=== PATIENT | male | born 1980 | race Caucasian/White ===

== ENCOUNTER 2018-02-05 16:46 | Emergency (ER) | payer SELFPAY ==
[2018-02-05] MEDS ORDERED: Ketorolac 30 MG/ML SDV IVPUSH ONE (17:48)
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
== END 2018-02-05 18:32 | disposition home or self-care (01) ==
LOC: JP.ED 16:46
DX: S00.03XA Contusion of scalp, initial encounter (principal); S00.81XA Abrasion of other part of head, initial encounter; V49.88XA Car occupant (driver) (passenger) injured in other specified transport accidents, initial encounter
CPT/HCPCS: 96374; 99283; J1885; 99282

== ENCOUNTER 2018-04-26 19:49 | Emergency (ER) | payer MEDICARE ==
[2018-04-26] MEDS ORDERED: Triamcinolone Acetonide 40 MG/ML 1 ML MDV IM ONE (21:04)
[2018-04-26] MEDS ORDERED: hydrOXYzine HCl 100 MG/2 ML SDV IM ONE (21:05)
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
== END 2018-04-26 21:29 | disposition home or self-care (01) ==
LOC: JP.ED 19:49
DX: L01.00 Impetigo, unspecified (principal)
CPT/HCPCS: 96372; 99283; J3301; J3410

== ENCOUNTER 2018-11-24 19:12 | Emergency (ER) | payer MEDICARE ==
--- NOTE | 2018-11-24 20:12 | EDM.PDOC ---
ED HPI GENERAL MEDICAL PROBLEM - General Chief Complaint: Lower Extremity Injury/Pain Stated Complaint: WALKING AND TWISTED KNEE Time Seen by Provider: 11/24/18 19:59 Source of Information: Reports: Patient History Limitations: Reports: No Limitations - History of Present Illness INITIAL COMMENTS - FREE TEXT/NARRATIVE: This man had previous surgery on his left knee and ACL repair. Tonight he was walking around and he slipped and twisted his left knee. That happened a few hours ago. He complains of pain to the medial aspect of the left knee. He is able to bear weight. He said elevating it and applying ice has not helped. Treatments MANAGER DIVISION: Reports: Other (see below) Other Treatments MANAGER DIVISION: uses a cane Left Knee Pain Score (Numeric/FACES): 8 - Related Data Allergies Allergy/AdvReac Type Severity Reaction Status Date / Time No Known Allergies Allergy Verified 02/05/18 16:52 Home Meds: Home Meds NK [No Known Home Meds] 02/05/18 [History] Past Medical History - Infectious Disease History Infectious Disease History: Reports: Chicken Pox - Past Surgical History HEENT Surgical History: Reports: Other (See Below) Other HEENT Surgeries/Procedures: LOWER JAW SURGICAL REPAIR Musculoskeletal Surgical History: Reports: Arthroscopic Knee Other Musculoskeletal Surgeries/Procedures:: R HIP REPLACEMENT Social & Family History - Family History Family Medical History: Noncontributory - Tobacco Use Smoking Status *Q: Unknown Ever Smoked - Caffeine Use Caffeine Use: Reports: Soda - Recreational Drug Use Recreational Drug Use: No - Living Situation & Occupation Living situation: Reports: , Single Occupation: Employed Review of Systems - Review of Systems Review Of Systems: ROS reveals no pertinent complaints other than HPI. ED EXAM, GENERAL - Physical Exam Exam: See Below Exam Limited By: No Limitations General Appearance: Alert, WD/WN, No Apparent Distress Extremities: Other (Grossly normal-appearing knee with some reduction in flexion. No evidence of any effusion. No erythema. There is moderate tenderness to the medial collateral ligaments. The knee is stable.) Course - Vital Signs Last Recorded V/S: Last Vital Signs Temp 36.8 C 11/24/18 19:45 Pulse 94 11/24/18 19:45 Resp 14 11/24/18 19:45 BP 124/82 11/24/18 19:45 Pulse Ox 96 11/24/18 19:45 Departure - Departure Time of Disposition: 20:09 Disposition: Home, Self-Care 01 Condition: Fair Clinical Impression: Strain of left knee - Discharge Information Referrals: PCP,None [Primary Care Provider] - Additional Instructions: This appears to be a ligament strain of the medial collateral ligament. Since there is no appreciable swelling or bruising then I don't think it's a actual sprain. Use pain medications as needed. The Nar[place] 5/325 (#12) one or 2 every 4 hours for pain. This can cause sedation and impair driving could lead to addiction if abused. Elevate your knee and apply ice. Weightbearing as tolerated. An ronni wrap may help it.
== END 2018-11-24 20:35 | disposition home or self-care (01) ==
LOC: JP.ED 19:12
DX: S86.912A Strain of unspecified muscle(s) and tendon(s) at lower leg level, left leg, initial encounter (principal); X50.1XXA Overexertion from prolonged static or awkward postures, initial encounter
CPT/HCPCS: 99283

== ENCOUNTER 2018-12-28 22:14 | Emergency (ER) | payer MEDICARE ==
[2018-12-28] MEDS ORDERED: Ketorolac 60 MG/2 ML SDV IM ONE (22:56)
[2018-12-28] MEDS ORDERED: Acetaminophen/oxyCODONE 325-5 MG Tab PO ONE (22:57)
--- NOTE | 2018-12-28 23:03 | EDM.PDOC ---
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 He had surgery to try to straighten the jaw and he now has the screws coming loose. He Has a cavity in one of his back molars which the dentist will not fix. He was referred to the ilion and he can not get an appt until the end of the month. He is now haveing increased pain. Onset: Gradual, Other ( Pt has had days of increased pain. ) Duration: Hour(s): Location: Reports: Face Associated Symptoms: Reports: No Other Symptoms Right Lower Jaw Pain Score (Numeric/FACES): 9 - Related Data Allergies Allergy/AdvReac Type Severity Reaction Status Date / Time No Known Allergies Allergy Verified 12/28/18 22:40 Home Meds: Home Meds NK [No Known Home Meds] 02/05/18 [History] Past Medical History Musculoskeletal History: Reports: Fracture Neurological History: Reports: Concussion Psychiatric History: Reports: ADD Endocrine/Metabolic History: Reports: Obesity/BMI 30+ - Infectious Disease History Infectious Disease History: Reports: Chicken Pox - Past Surgical History HEENT Surgical History: Reports: Other (See Below) Other HEENT Surgeries/Procedures: LOWER JAW SURGICAL REPAIR Musculoskeletal Surgical History: Reports: Arthroscopic Knee, Hip Replacement Social & Family History - Family History Family Medical History: Noncontributory - Tobacco Use Smoking Status *Q: Light Tobacco Smoker Years of Tobacco use: 29 Packs/Tins Daily: 0.3 Used Tobacco, but Quit: No - Caffeine Use Caffeine Use: Reports: Coffee, Energy Drinks, Soda - Recreational Drug Use Recreational Drug Use: No - Living Situation & Occupation Living situation: Reports: , Single Occupation: Employed ED ROS ENT - Review of Systems Review Of Systems: See Below Constitutional: Reports: No Symptoms HEENT: Reports: Dental Pain, Other (pt has severe pain in the lower post molar and he has a palpable screw in the jaw. ) Cardiovascular: Reports: No Symptoms Endocrine: Reports: No Symptoms GI/Abdominal: Reports: No Symptoms : Reports: No Symptoms ED EXAM, ENT - Physical Exam Exam: See Below Text/Narrative:: Pt arrived with pain in the rt jaw area. The molar area is very tender. The gum line is not swollen. He has not had a fever. He uses motrin and he gets relief with 200mg but then it comes back. Exam Limited By: No Limitations General Appearance: Alert, Anxious, Mild Distress Ears: Normal TMs Nose: Normal Inspection Mouth/Throat: Dental Pain, Other (Pt has a carrious lower post molar. He has a palable screw and marked deviation of the jaw. ) Head: Atraumatic Neck: Normal Inspection Respiratory/Chest: No Respiratory Distress Cardiovascular: Regular Rate, Rhythm GI/Abdominal: Soft, Non-Tender Course - Vital Signs Last Recorded V/S: Last Vital Signs Temp 36.1 C 12/28/18 22:39 Pulse 92 12/28/18 22:39 Resp 20 12/28/18 22:39 BP 165/93 H 12/28/18 22:39 Pulse Ox 96 12/28/18 22:39 - Orders/Labs/Meds Orders: Active Orders 24 hr Category Date Time Status Acetaminophen/oxyCODONE [Percocet 325-5 MG] Med 12/28/18 22:57 Once 1 tab PO ONETIME ONE Ketorolac [Toradol] Med 12/28/18 22:56 Once 60 mg IM ONETIME ONE Medication Orders Ketorolac Tromethamine (Toradol) 60 mg IM ONETIME ONE Stop: 12/28/18 22:57 Meds: Medications Generic Name Dose Route Start Last Admin Trade Name Javi PRN Reason Stop Dose Admin Ketorolac Tromethamine 60 mg 12/28/18 22:56 Toradol IM 12/28/18 22:57 ONETIME ONE - Re-Assessments/Exams Free Text/Narrative Re-Assessment/Exam: 12/28/18 23:08 pt was given torodol 60mg im and percocet 5/325. Since he does get relief with the motrin He needs to get on a more rigorous program. Departure - Departure Time of Disposition: 23:09 Disposition: Home, Self-Care 01 Condition: Fair Clinical Impression: Pain due to dental caries, Jaw asymmetry - Discharge Information Referrals: PCP,None [Primary Care Provider] - Care Plan Goals: keep dental appt at [facility], get on a more rigorous program for pain control with the ibuprofen since he does get reliet. Ibuprofin 400mg q8h. Pt can use plain tylenol inbetween for pain. Be sure to take the Ibuprofion with food and push fluids while taking the meds. Return or call if that is not working for the pt. - My Orders Last 24 Hours: My Active Orders 12/28/18 22:56 Ketorolac [Toradol] 60 mg IM ONETIME ONE 12/28/18 22:57 Acetaminophen/oxyCODONE [Percocet 325-5 MG] 1 tab PO ONETIME ONE - Assessment/Plan Last 24 Hours: My Active Orders 12/28/18 22:56 Ketorolac [Toradol] 60 mg IM ONETIME ONE 12/28/18 22:57 Acetaminophen/oxyCODONE [Percocet 325-5 MG] 1 tab PO ONETIME ONE
== END 2018-12-29 00:27 | disposition home or self-care (01) ==
LOC: JP.ED 22:14
DX: K02.9 Dental caries, unspecified (principal); M26.12 Other jaw asymmetry; F17.210 Nicotine dependence, cigarettes, uncomplicated
CPT/HCPCS: 96372; 99283; A9270; J1885

== ENCOUNTER 2019-01-20 21:38 | Emergency (ER) | payer MEDICARE ==
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
== END 2019-01-20 22:38 | disposition home or self-care (01) ==
LOC: JP.ED 21:38
DX: K02.9 Dental caries, unspecified (principal); F17.210 Nicotine dependence, cigarettes, uncomplicated
CPT/HCPCS: 99282

== ENCOUNTER 2019-01-28 20:27 | Emergency (ER) | payer MEDICARE ==
--- NOTE | 2019-01-28 22:47 | EDM.PDOC ---
ED HPI GENERAL MEDICAL PROBLEM - General Chief Complaint: ENT Problem Stated Complaint: tooth issue Time Seen by Provider: 01/28/19 22:15 Source of Information: Reports: Patient History Limitations: Reports: No Limitations - History of Present Illness INITIAL COMMENTS - FREE TEXT/NARRATIVE: 38-year-old presents to concerns of dental pain. He has a history of multiple dental caries. Pain from these for several weeks. Seen here recently, started on penicillin and vicodin Pain continues Unable to get into dental clinic Reports some improvement while on antibiotic No fevers. Otherwise feels well Right Upper Oral/Mouth Pain Score (Numeric/FACES): 10 - Related Data Allergies Allergy/AdvReac Type Severity Reaction Status Date / Time No Known Allergies Allergy Verified 01/28/19 21:05 Home Meds: Home Meds Acetaminophen [Tylenol Extra Strength] 1,000 mg PO ASDIRECTED 01/28/19 [History] Amoxicillin/Clavulanate K [Augmentin 875-125 MG] 1 tab PO BID #14 tablet [Rx] Ibuprofen 800 mg PO ASDIRECTED 01/28/19 [History] Past Medical History Genitourinary History: Reports: Renal Calculus Musculoskeletal History: Reports: Fracture Neurological History: Reports: Concussion Psychiatric History: Reports: ADD Endocrine/Metabolic History: Reports: Obesity/BMI 30+ Dermatologic History: Reports: Psoriasis - Infectious Disease History Infectious Disease History: Reports: Other (See Below) Other Infectious Disease History: unknown - Past Surgical History HEENT Surgical History: Reports: Other (See Below) Other HEENT Surgeries/Procedures: LOWER JAW SURGICAL REPAIR Musculoskeletal Surgical History: Reports: Arthroscopic Knee, Hip Replacement Social & Family History - Family History Family Medical History: Noncontributory - Tobacco Use Smoking Status *Q: Current Every Day Smoker Years of Tobacco use: 24 Packs/Tins Daily: 0.5 - Caffeine Use Caffeine Use: Reports: Coffee - Recreational Drug Use Recreational Drug Use: No - Living Situation & Occupation Living situation: Reports: , Single Occupation: Employed ED ROS ENT - Review of Systems Review Of Systems: See Below Constitutional: Reports: No Symptoms HEENT: Reports: Dental Pain Respiratory: Reports: No Symptoms Cardiovascular: Reports: No Symptoms Endocrine: Reports: No Symptoms GI/Abdominal: Reports: No Symptoms : Reports: No Symptoms Musculoskeletal: Reports: No Symptoms Skin: Reports: No Symptoms Neurological: Reports: No Symptoms Psychiatric: Reports: No Symptoms Hematologic/Lymphatic: Reports: No Symptoms Immunologic: Reports: No Symptoms ED EXAM, ENT - Physical Exam Exam: See Below General Appearance: Alert, No Apparent Distress Ears: Normal External Exam Nose: Normal Inspection Mouth/Throat: Other (severe dental caries right upper front teeth. no surrounding gingival swelling or evidence of abscess) Head: Atraumatic, Normocephalic Neck: Normal Inspection Respiratory/Chest: No Respiratory Distress Cardiovascular: Regular Rate, Rhythm GI/Abdominal: Soft, No Distention Back: Normal Inspection Extremities: Normal Inspection Neurological: Alert, Oriented Psychiatric: Normal Affect, Normal Mood Skin: Warm, Dry Course - Vital Signs Last Recorded V/S: Last Vital Signs Temp 36.8 C 01/28/19 21:11 Pulse 101 H 01/28/19 21:11 Resp 16 01/28/19 21:11 BP 151/97 H 01/28/19 21:11 Pulse Ox 98 01/28/19 21:11 - Re-Assessments/Exams Free Text/Narrative Re-Assessment/Exam: 38 yo presents with concerns of dental pain Have severe caries on exam This has been ongoing issue he is unable to see a dentist due to insurance, scheduled for february at this point No drainable abscess on exam or concern for deep space infection at this time. Will provide #8 norco and repeat course of antibiotics as he reports improvement with this recently 01/28/19 22:51 Departure - Departure Time of Disposition: 22:47 Disposition: Home, Self-Care 01 Clinical Impression: Pain, dental - Discharge Information *PRESCRIPTION DRUG MONITORING PROGRAM REVIEWED*: No *COPY OF PRESCRIPTION DRUG MONITORING REPORT IN PATIENT DEON: No Prescriptions: Amoxicillin/Clavulanate K [Augmentin 875-125 MG] 1 tab PO BID #14 tablet Referrals: PCP,None [Primary Care Provider] - Forms: ED Department Discharge Additional Instructions: You need to follow up with a dentist as discussed Return to the ER if you develop worsening symptoms especially fevers
== END 2019-01-28 22:56 | disposition home or self-care (01) ==
LOC: JP.ED 20:27
DX: K02.9 Dental caries, unspecified (principal); F17.210 Nicotine dependence, cigarettes, uncomplicated
CPT/HCPCS: 99282

== ENCOUNTER 2019-02-06 11:25 | Emergency (ER) | payer MEDICARE, OTHER ==
--- NOTE | 2019-02-06 12:23 | EDM.PDOC ---
ED HPI GENERAL MEDICAL PROBLEM - General Chief Complaint: Upper Extremity Injury/Pain Stated Complaint: FALL, LEFT SIDE, HIT HEAD Time Seen by Provider: 02/06/19 12:10 Source of Information: Reports: Patient History Limitations: Reports: No Limitations - History of Present Illness INITIAL COMMENTS - FREE TEXT/NARRATIVE: 38-year-old male slipped on the ice falling on his left shoulder about 2 hours ago. He has pain on the lateral aspect of the shoulder, increased with abduction or rotation. No significant deformity, no paresthesias. Onset: Sudden Duration: Hour(s): (2 hours) Location: Reports: Upper Extremity, Left Associated Symptoms: Reports: No Other Symptoms Left Shoulder Pain Score (Numeric/FACES): 10 - Related Data Allergies Allergy/AdvReac Type Severity Reaction Status Date / Time No Known Allergies Allergy Verified 01/28/19 21:05 Home Meds: Home Meds Acetaminophen [Tylenol Extra Strength] 1,000 mg PO ASDIRECTED 01/28/19 [History] Ibuprofen 800 mg PO ASDIRECTED 01/28/19 [History] Past Medical History Genitourinary History: Reports: Renal Calculus Musculoskeletal History: Reports: Fracture Neurological History: Reports: Concussion Psychiatric History: Reports: ADD Endocrine/Metabolic History: Reports: Obesity/BMI 30+ Dermatologic History: Reports: Psoriasis - Infectious Disease History Infectious Disease History: Reports: Other (See Below) Other Infectious Disease History: unknown - Past Surgical History HEENT Surgical History: Reports: Other (See Below) Other HEENT Surgeries/Procedures: LOWER JAW SURGICAL REPAIR Musculoskeletal Surgical History: Reports: Arthroscopic Knee, Hip Replacement Social & Family History - Family History Family Medical History: Noncontributory - Tobacco Use Smoking Status *Q: Light Tobacco Smoker Years of Tobacco use: 10 Packs/Tins Daily: 0.5 - Caffeine Use Caffeine Use: Reports: Coffee, Soda - Recreational Drug Use Recreational Drug Use: No - Living Situation & Occupation Living situation: Reports: , Single Occupation: Employed Review of Systems - Review of Systems Review Of Systems: See Below Constitutional: Denies: Fever Respiratory: Denies: Shortness of Breath Cardiovascular: Denies: Chest Pain GI/Abdominal: Denies: Abdominal Pain Skin: Denies: Bruising Neurological: Denies: Paresthesia ED EXAM, GENERAL - Physical Exam Exam: See Below Exam Limited By: No Limitations General Appearance: Alert, No Apparent Distress Neck: Normal Inspection Respiratory/Chest: No Respiratory Distress Extremities: Other (Exam is otherwise limited to the left upper extremity. He has tenderness over the ac joint but no considerable step off, no crepitus, no significant tenderness of the clavicle and passive range of motion is only mildly tender.) Course - Vital Signs Last Recorded V/S: Last Vital Signs Temp 98.4 F 02/06/19 12:03 Pulse 85 02/06/19 12:03 Resp 16 02/06/19 12:03 BP 146/100 H 02/06/19 12:03 Pulse Ox 98 02/06/19 12:03 - Re-Assessments/Exams Free Text/Narrative Re-Assessment/Exam: 02/06/19 12:23 Left shoulder x-ray was obtained. Departure - Departure Time of Disposition: 12:54 Disposition: Home, Self-Care 01 Condition: Good Clinical Impression: Contusion of shoulder, left Qualifiers: Encounter type: initial encounter Qualified Code(s): S40.012A - Contusion of left shoulder, initial encounter - Discharge Information Instructions: Contusion, [id number] Referrals: PCP,None [Primary Care Provider] - Forms: ED Department Discharge Care Plan Goals: Rest today, ibuprofen or naproxen should help. Increase activity as tolerated, and resume regular activity as soon as possible. If not improving by next week, recheck with orthopedics.
--- NOTE | 2019-02-06 13:08 | CRLCR ---
INDICATION: Pain after fall on ice. COMPARISON: None available. FINDINGS: The left shoulder was examined with AP internal and external rotation and outlet views for a total of three views. The osseous structures are in anatomic alignment without fracture or dislocation. There is anatomic alignment of the humeral head and glenoid. The visualized chest is clear. IMPRESSION: Normal left shoulder. Dictated by Fredis Burger MD @ Feb 06 2019 1:04PM Signed by Dr. Fredis Burger @ Feb 06 2019 1:06PM
== END 2019-02-06 12:54 | disposition home or self-care (01) ==
LOC: JP.ED 11:25
DX: S40.012A Contusion of left shoulder, initial encounter (principal); F17.210 Nicotine dependence, cigarettes, uncomplicated; W00.0XXA Fall on same level due to ice and snow, initial encounter
CPT/HCPCS: 73030-LT; 99283-25

== ENCOUNTER 2019-04-05 18:48 | Emergency (ER) | payer MEDICARE ==
[2019-04-05] MEDS ORDERED: Acetaminophen/HYDROcodone 325-5 MG Tab PO ONE (20:20)
--- NOTE | 2019-04-05 21:13 | CRLCR ---
Indication: Right shoulder pain Technique: Four views right shoulder Comparison: None Findings: Bones: Alignment is normal. No fractures. There is a 4.7 x 2.8 cm predominantly lytic lesion with ill-defined margins in the right humeral head. There is periosteal reaction along the medial aspect of the humeral head. No soft tissue component identified. Joint spaces: Unremarkable. Soft tissues: Unremarkable. Impression: Bone lesion within the right humeral head with periosteal reaction. Findings are concerning for primary bone tumor. No evidence for pathologic fracture. Recommend CT and/or MRI with gadolinium for further evaluation. These findings were discussed with Dr. Galicia at 9:08 p.m. on April 05, 2019. Dictated by Effie Ramirez MD @ Apr 05 2019 9:00PM Signed by Dr. Effie Ramirez @ Apr 05 2019 9:11PM
[2019-04-05] MEDS ORDERED: Sodium Chloride 0.9% 1,000 ML IV SCH (21:30)
--- NOTE | 2019-04-05 22:25 | CRLCR ---
Indication: Right shoulder pain with bony lesion on shoulder radiograph Technique: Chest 2 views Comparison: None Findings: Cardiovascular and mediastinum: Heart size and vasculature are normal in caliber and appearance. Mediastinum is within normal limits. Lungs and pleural spaces: Lungs are clear. No sign of infiltrate or mass. No sign of pleural effusion. No pneumothorax. Bones and soft tissues: No significant findings. Impression: : No acute abnormality. Dictated by Effie Ramirez MD @ Apr 05 2019 10:21PM Signed by Dr. Effie Ramirez @ Apr 05 2019 10:23PM
--- NOTE | 2019-04-05 22:38 | CRLCT ---
Indication: Abnormal lesion on right humeral head on radiograph Technique: Noncontrast CT proximal right humerus Comparison: Right shoulder radiograph from same date Findings: No osseous lesion is identified. There is a region of osteopenia with subchondral cysts and sclerosis on the superolateral aspect of the humeral head and some bony spur formation along the medial aspect of the humeral head. There is mild narrowing of the glenohumeral joint. Mild degenerative changes in the acromioclavicular joint. Remainder of the osseous structures are intact. The soft tissues are normal. Impression: No evidence for osseous tumor. There are degenerative changes along the superolateral aspect of the humeral head and bony spur formation along the medial humeral head. These findings account for the abnormality seen on the plain radiograph. These findings also suggest possible rotator cuff tear. Recommend MRI for further evaluation. Mild degenerative changes in the glenohumeral and acromioclavicular joints. These findings were discussed with Dr. Galicia at 10:35 p.m. on April 05, 2019. Please note that all CT scans at this facility use dose modulation, iterative reconstruction, and/or weight-based dosing when appropriate to reduce radiation dose to as low as reasonably achievable. Dictated by Effie Ramirez MD @ Apr 05 2019 10:22PM Signed by Dr. Effie Ramirez @ Apr 05 2019 10:37PM
--- NOTE | 2019-04-05 22:51 | EDM.PDOC ---
ED HPI GENERAL MEDICAL PROBLEM - General Chief Complaint: Upper Extremity Injury/Pain Stated Complaint: RT SHOULDER PAIN Time Seen by Provider: 04/05/19 20:09 Source of Information: Reports: Patient History Limitations: Reports: No Limitations - History of Present Illness INITIAL COMMENTS - FREE TEXT/NARRATIVE: chief complaint: right shoulder pain since 2009 or 2010. This is a 38 year old male present to ER for evaluation of right shoulder pain. reports woke up this morning in acute pain. Throbbing type of pain in the right shoulder. 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 He has been told in the past he had rotator cuff injury treated in the past with cortisone injections. He has not had any xrays or scanning.. no Primary Care Provider, may use [facility] Onset: Gradual Duration: Chronic (years of right shoulder pain) Location: Reports: Upper Extremity, Right Quality: Reports: Sharp, Throbbing Improves with: Reports: Rest Worsens with: Reports: Movement Associated Symptoms: Reports: No Other Symptoms Treatments WHITE SOURER: Reports: Other (see below) Other Treatments WHITE SOURER: Unknown Right Shoulder Pain Score (Numeric/FACES): 8 - Related Data Allergies Allergy/AdvReac Type Severity Reaction Status Date / Time No Known Allergies Allergy Verified 04/05/19 20:13 Home Meds: Home Meds Acetaminophen [Tylenol Extra Strength] 1,000 mg PO ASDIRECTED 01/28/19 [History] Ibuprofen 800 mg PO ASDIRECTED 01/28/19 [History] Past Medical History Genitourinary History: Reports: Renal Calculus Musculoskeletal History: Reports: Fracture Neurological History: Reports: Concussion Psychiatric History: Reports: ADD Endocrine/Metabolic History: Reports: Obesity/BMI 30+ Dermatologic History: Reports: Psoriasis - Infectious Disease History Infectious Disease History: Reports: Chicken Pox Other Infectious Disease History: unknown - Past Surgical History HEENT Surgical History: Reports: Other (See Below) Other HEENT Surgeries/Procedures: LOWER JAW SURGICAL REPAIR Musculoskeletal Surgical History: Reports: Arthroscopic Knee, Hip Replacement Social & Family History - Family History Family Medical History: Noncontributory - Tobacco Use Smoking Status *Q: Unknown Ever Smoked - Caffeine Use Caffeine Use: Reports: Coffee - Recreational Drug Use Recreational Drug Use: No - Living Situation & Occupation Living situation: Reports: , Single Occupation: Employed Review of Systems - Review of Systems Review Of Systems: See Below Constitutional: Reports: Other (right shoulder pain since 2009) Respiratory: Reports: No Symptoms Cardiovascular: Reports: No Symptoms Musculoskeletal: Reports: Shoulder Pain (right) Skin: Reports: No Symptoms Neurological: Reports: No Symptoms Psychiatric: Reports: No Symptoms ED EXAM, GENERAL - Physical Exam Exam: See Below Exam Limited By: No Limitations General Appearance: Alert, WD/WN, No Apparent Distress Respiratory/Chest: Lungs Clear, Normal Breath Sounds, No Accessory Muscle Use Cardiovascular: Regular Rate, Rhythm, No Murmur Peripheral Pulses: 2+: Radial (L), Radial (R) Extremities: Normal Inspection, Normal Capillary Refill, Arm Pain (right with lift arm past 90 degrees), Other (acute pain noted right shoulder, increased pain and unable to lift arm past mid-line 90 degrees. no pops or clicks with range of motion.) Neurological: No Motor/Sensory Deficits Psychiatric: Normal Affect, Normal Mood Skin Exam: Warm, Dry, Intact, Normal Color, No Rash Lymphatic: No Adenopathy Course - Vital Signs Last Recorded V/S: Last Vital Signs Temp 96 C H 04/05/19 20:00 Pulse 78 04/05/19 20:00 Resp 12 04/05/19 20:00 BP Pulse Ox 96 04/05/19 20:00 - Orders/Labs/Meds Labs: Laboratory Tests 04/05/19 04/05/19 04/05/19 Range/Units 21:19 21:19 21:40 WBC 8.3 (4.5-11.0) K/uL RBC 5.21 (4.30-5.90) M/uL Hgb 15.6 H (12.0-15.0) g/dL Hct 46.1 (40.0-54.0) % MCV 89 (80-98) fL MCH 30 (27-31) pg MCHC 34 (32-36) % Plt Count 245 (150-400) K/uL Neut % (Auto) 55 (36-66) % Lymph % (Auto) 34 (24-44) % Foard % (Auto) 8 H (2-6) % Eos % (Auto) 3 (2-4) % Baso % (Auto) 0 (0-1) % Sodium 138 L (140-148) mmol/L Potassium 3.6 (3.6-5.2) mmol/L Chloride 104 (100-108) mmol/L Carbon Dioxide 29 (21-32) mmol/L Anion Gap 8.6 (5.0-14.0) mmol/L BUN 17 (7-18) mg/dL Creatinine 1.1 (0.8-1.3) mg/dL Est Cr Clr Drug Dosing 90.16 mL/min Estimated GFR (MDRD) > 60 (>60) Glucose 99 (74-106) mg/dL Calcium 9.5 (8.5-10.1) mg/dL Phosphorus 3.9 (2.5-4.9) mg/dL Total Bilirubin 0.3 (0.2-1.0) mg/dL AST 23 (15-37) U/L ALT 39 (12-78) U/L Alkaline Phosphatase 88 (46-116) U/L C-Reactive Protein 0.13 (0.0-0.3) mg/dL Total Protein 7.0 (6.4-8.2) g/dL Albumin 3.8 (3.4-5.0) g/dL Globulin 3.2 (2.3-3.5) g/dL Albumin/Globulin Ratio 1.2 (1.2-2.2) Meds: Medications Discontinued Medications Generic Name Dose Route Start Last Admin Trade Name Freq PRN Reason Stop Dose Admin Hydrocodone Bitart/Acetaminophen 1 tab 04/05/19 20:20 04/05/19 20:41 [place] 325-5 Mg PO 04/05/19 20:21 1 tab ONETIME ONE Administration Sodium Chloride 1,000 mls @ 999 mls/hr 04/05/19 21:30 Normal Saline IV ASDIRECTED GONZALO - Re-Assessments/Exams Free Text/Narrative Re-Assessment/Exam: xrays of shoulder was abnormal , concerns of possible primary bone tumor, recommend CT and MRI the 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 discussed results with Mr. Newman, given copy of CT reports. this is poss rotator cuff injury , will order MRI shoulder to evaluate rotator cuff. will follow up in Orthopedics and also advise to establish care in Primary Care. Mr. Newman agrees with plan of care. Departure - Departure Time of Disposition: 22:45 Disposition: Home, Self-Care 01 Condition: Good Clinical Impression: Shoulder pain, right Qualifiers: Chronicity: chronic Qualified Code(s): M25.511 - Pain in right shoulder Rotator cuff tear Qualifiers: Rotator cuff tear extent: unspecified tear extent Encounter type: initial encounter Laterality: right - Discharge Information *PRESCRIPTION DRUG MONITORING PROGRAM REVIEWED*: Not Applicable *COPY OF PRESCRIPTION DRUG MONITORING REPORT IN PATIENT DEON: Not Applicable Instructions: Surgery for Rotator Cuff Tear, Shoulder Pain, [id number] Referrals: PCP,None [Primary Care Provider] - Forms: ED Department Discharge Care Plan Goals: Right shoulder pain, with right rotator cuff tear -Motrin 600mg one every 6 to 8 hours as needed for pain #30 -flexeril 10mg one every 8 hours as needed for muscle spasms #15 -Hydrocodone 5-325mg one every 4 to 6 hours as needed for acute pain #10 -MRI of right shoulder with contrast in am Follow up with Orthopedic Clinic for shoulder pain will need to establish care with Primary Care Provider for follow up Return to ER if not improved or symptoms worsen. - Problem List & Annotations (1) Rotator cuff tear SNOMED Code(s): 058661184 Code(s): M75.100 - UNSP ROTATR-CUFF TEAR/RUPTR OF UNSP SHOULDER, NOT TRAUMA Status: Acute Priority: High Qualifiers: Rotator cuff tear extent: unspecified tear extent Encounter type: initial encounter Laterality: right (2) Shoulder pain, right SNOMED Code(s): 65867572, [id number] Code(s): M25.511 - PAIN IN RIGHT SHOULDER Status: Acute Qualifiers: Chronicity: chronic Qualified Code(s): M25.511 - Pain in right shoulder; G89.29 - Other chronic pain - Problem List Review Problem List Initiated/Reviewed/Updated: Yes - Assessment/Plan Plan: Right shoulder pain, with right rotator cuff tear -Motrin 600mg one every 6 to 8 hours as needed for pain #30 -flexeril 10mg one every 8 hours as needed for muscle spasms #15 -Hydrocodone 5-325mg one every 4 to 6 hours as needed for acute pain #10 -MRI of right shoulder with contrast in am Follow up with Orthopedic Clinic for shoulder pain will need to establish care with Primary Care Provider for follow up Return to ER if not improved or symptoms worsen.
== END 2019-04-05 23:04 | disposition home or self-care (01) ==
LOC: JP.ED 18:48
DX: M75.101 Unspecified rotator cuff tear or rupture of right shoulder, not specified as traumatic (principal)
CPT/HCPCS: 36415; 71046; 73030; 73200; 80053; 84100; 85025; 86140; 99284; A9270

== ENCOUNTER 2019-05-28 21:06 | Emergency (ER) | payer MEDICARE ==
--- NOTE | 2019-05-28 21:31 | EDM.PDOC ---
ED HPI GENERAL MEDICAL PROBLEM - General Chief Complaint: Upper Extremity Injury/Pain Stated Complaint: RIGHT SHOULDER PAIN Time Seen by Provider: 05/28/19 21:09 Source of Information: Reports: Patient History Limitations: Reports: No Limitations - History of Present Illness INITIAL COMMENTS - FREE TEXT/NARRATIVE: Mr. Newman comes in with chronic right shoulder pain. He states he has a known rotator cuff injury and he is supposed to have surgery however he started his new job and he has to be there 90 days before he can have surgery; he states he has throbbing pain; hurts along the right scapula, extending into the right shoulder and down the arm and into his right hand, specifically his 4th and 5th finger. He has taken nothing for this [employer]. No new injury. Onset: Gradual Right Shoulder Pain Score (Numeric/FACES): 10 - Related Data Allergies Allergy/AdvReac Type Severity Reaction Status Date / Time No Known Allergies Allergy Verified 05/28/19 21:30 Home Meds: Home Meds NK [No Known Home Meds] 05/28/19 [History] Past Medical History Genitourinary History: Reports: Renal Calculus Musculoskeletal History: Reports: Fracture, Other (See Below) Other Musculoskeletal History: right rotator cuff tear Neurological History: Reports: Concussion Psychiatric History: Reports: ADD Endocrine/Metabolic History: Reports: Obesity/BMI 30+ Dermatologic History: Reports: Psoriasis - Infectious Disease History Infectious Disease History: Reports: Chicken Pox Other Infectious Disease History: unknown - Past Surgical History HEENT Surgical History: Reports: Other (See Below) Other HEENT Surgeries/Procedures: LOWER JAW SURGICAL REPAIR Musculoskeletal Surgical History: Reports: Arthroscopic Knee, Hip Replacement Social & Family History - Family History Family Medical History: Noncontributory - Caffeine Use Caffeine Use: Reports: Coffee - Living Situation & Occupation Living situation: Reports: , Single Occupation: Employed Review of Systems - Review of Systems Review Of Systems: ROS reveals no pertinent complaints other than HPI. ED EXAM, GENERAL - Physical Exam Exam: See Below Exam Limited By: No Limitations General Appearance: Alert, WD/WN, No Apparent Distress Head: Atraumatic, Normocephalic Neck: Normal Inspection, Supple, Non-Tender, Full Range of Motion Respiratory/Chest: No Respiratory Distress, Lungs Clear, Normal Breath Sounds Cardiovascular: Regular Rate, Rhythm Peripheral Pulses: 4+: Radial (L), Radial (R) GI/Abdominal: Normal Bowel Sounds, Soft Back Exam: Full Range of Motion Extremities: Normal Inspection, Other (decreased ROM, unable to raise above arm currently, +CMS) Neurological: Alert, Oriented, CN II-XII Intact, Normal Cognition, Normal Gait Psychiatric: Normal Affect, Normal Mood Skin Exam: Warm, Dry, Intact, Normal Color, No Rash Course - Vital Signs Last Recorded V/S: Last Vital Signs Temp 97.4 F 05/28/19 21:27 Pulse 84 05/28/19 21:27 Resp 16 05/28/19 21:27 BP 170/86 H 05/28/19 21:27 Pulse Ox 98 05/28/19 21:27 Departure - Departure Time of Disposition: 21:27 Disposition: Home, Self-Care 01 Condition: Good Clinical Impression: Shoulder pain, right - Discharge Information *PRESCRIPTION DRUG MONITORING PROGRAM REVIEWED*: Not Applicable *COPY OF PRESCRIPTION DRUG MONITORING REPORT IN PATIENT DEON: Not Applicable Instructions: Shoulder Pain Referrals: PCP,None [Primary Care Provider] - Forms: ED Department Discharge Additional Instructions: Consider a TENS unit (trans electrical nerve stimulator) off [employer] or [employer]; worth the money Ice Ibuprofen 800 mg as directed Tylenol 500 mg every 6 hours Muscle relaxer as directed Pain medicine only if you are not working or driving and do not take with muscle relaxer. - Problem List & Annotations (1) Shoulder pain, right SNOMED Code(s): 85379147, [id number] Code(s): M25.511 - PAIN IN RIGHT SHOULDER Status: Acute Priority: Low Current Visit: Yes Qualifiers: Chronicity: chronic - Problem List Review Problem List Initiated/Reviewed/Updated: Yes
== END 2019-05-28 21:42 | disposition home or self-care (01) ==
LOC: JP.ED 21:06
DX: M25.511 Pain in right shoulder (principal); F90.9 Attention-deficit hyperactivity disorder, unspecified type; E66.9 Obesity, unspecified; Z68.34 Body mass index [BMI] 34.0-34.9, adult
CPT/HCPCS: 99283

== ENCOUNTER 2019-06-01 18:35 | Emergency (ER) | payer MEDICARE ==
--- NOTE | 2019-06-01 20:15 | EDM.PDOC ---
ED HPI GENERAL MEDICAL PROBLEM - General Chief Complaint: Lower Extremity Injury/Pain Stated Complaint: LEFT FOOT PAIN Time Seen by Provider: 06/01/19 20:13 Source of Information: Reports: Patient History Limitations: Reports: No Limitations - History of Present Illness INITIAL COMMENTS - FREE TEXT/NARRATIVE: pt woke up this am and had severe pain in the left small toe area. He has not had a injury. He has not had gout in the past. Onset: Gradual, Other (pt woke up with pain in the small toe area. ) Duration: Hour(s): Location: Reports: Lower Extremity, Left Associated Symptoms: Reports: No Other Symptoms left foot Pain Score (Numeric/FACES): 9 - Related Data Allergies Allergy/AdvReac Type Severity Reaction Status Date / Time No Known Allergies Allergy Verified 06/01/19 20:09 Home Meds: Home Meds Cyclobenzaprine [Flexeril] 10 mg PO ASDIRECTED PRN 06/01/19 [History] Past Medical History Genitourinary History: Reports: Renal Calculus Musculoskeletal History: Reports: Fracture, Other (See Below) Other Musculoskeletal History: right rotator cuff tear Neurological History: Reports: Concussion Psychiatric History: Reports: ADD Endocrine/Metabolic History: Reports: Obesity/BMI 30+ Dermatologic History: Reports: Psoriasis - Infectious Disease History Infectious Disease History: Reports: Chicken Pox Other Infectious Disease History: unknown - Past Surgical History HEENT Surgical History: Reports: Other (See Below) Other HEENT Surgeries/Procedures: LOWER JAW SURGICAL REPAIR Musculoskeletal Surgical History: Reports: Arthroscopic Knee, Hip Replacement Social & Family History - Family History Family Medical History: Noncontributory - Caffeine Use Caffeine Use: Reports: Coffee - Living Situation & Occupation Living situation: Reports: , Single Occupation: Employed Review of Systems - Review of Systems Review Of Systems: See Below Constitutional: Reports: No Symptoms Eyes: Reports: No Symptoms Ears: Reports: No Symptoms Nose: Reports: No Symptoms Mouth/Throat: Reports: No Symptoms Respiratory: Reports: No Symptoms Cardiovascular: Reports: No Symptoms GI/Abdominal: Reports: No Symptoms Musculoskeletal: Reports: Other (pain in the left small toe area. ) ED EXAM, GENERAL - Physical Exam Exam: See Below Free Text/Narrative:: Pt woke up with a painful left small toe. Exam Limited By: No Limitations General Appearance: Alert, Anxious, Mild Distress Extremities: Other ( small toe is red and inflammed very tender. ) Course - Vital Signs Last Recorded V/S: Last Vital Signs Temp 36.4 C 06/01/19 20:10 Pulse 90 06/01/19 20:10 Resp 16 06/01/19 20:10 BP 143/97 H 06/01/19 20:10 Pulse Ox 99 06/01/19 20:10 - Orders/Labs/Meds Labs: Laboratory Tests 06/01/19 06/01/19 Range/Units 20:12 20:25 WBC 11.7 H (4.5-11.0) K/uL RBC 5.32 (4.30-5.90) M/uL Hgb 16.1 H (12.0-15.0) g/dL Hct 47.0 (40.0-54.0) % MCV 88 (80-98) fL MCH 30 (27-31) pg MCHC 34 (32-36) % Plt Count 272 (150-400) K/uL Neut % (Auto) 69 H (36-66) % Lymph % (Auto) 22 L (24-44) % [place] % (Auto) 8 H (2-6) % Eos % (Auto) 1 L (2-4) % Baso % (Auto) 0 (0-1) % Uric Acid 6.2 (3.5-7.2) mg/dL - Re-Assessments/Exams Free Text/Narrative Re-Assessment/Exam: 06/01/19 20:31 xray of the foot does not reveal any khris abnormalities. Departure - Departure Time of Disposition: 21:00 Disposition: Home, Self-Care 01 Condition: Fair Clinical Impression: Infection of toe - Discharge Information Referrals: PCP,None [Primary Care Provider] - Forms: ED Department Discharge Care Plan Goals: soak foot bid in warm water, avoid pressure on the toe, keflex 500mg tid for 1 week, naprosyn 500mg bid.
--- NOTE | 2019-06-01 20:47 | CRLCR ---
INDICATION: Painful 5th digit TECHNIQUE: Three views left foot COMPARISON: None FINDINGS: Bones: Alignment is normal. No fractures or bone lesions. Joint spaces: Unremarkable. Soft tissues: Soft tissue edema adjacent to the 5th digit. IMPRESSION: Soft tissue edema adjacent to the 5th digit. Dictated by Yifan Alfred MD @ 06/01/2019 8:45:28 PM Dictated by: Yifan Alfred MD @ 06/01/2019 20:45:32 (Electronically Signed)
[2019-06-01] MEDS ORDERED: Cephalexin 250 MG Cap PO ONE (21:03)
[2019-06-01] MEDS ORDERED: Naproxen 250 MG Tab PO ONE ×2 (21:04→21:24)
== END 2019-06-01 21:34 | disposition home or self-care (01) ==
LOC: JP.ED 18:35
DX: L08.9 Local infection of the skin and subcutaneous tissue, unspecified (principal); E66.9 Obesity, unspecified; Z68.33 Body mass index [BMI] 33.0-33.9, adult; Z79.899 Other long term (current) drug therapy; Z87.442 Personal history of urinary calculi
CPT/HCPCS: 36415; 73620; 84550; 85025; 99283; A9270

== ENCOUNTER 2020-03-19 11:57 | Emergency (ER) | payer MEDICARE | END 2020-03-19 14:05 | disposition left against medical advice (07) | LOC: JP.ED 11:57 | DX: Z53.21 Procedure and treatment not carried out due to patient leaving prior to being seen by health care provider (principal) ==

== ENCOUNTER 2020-04-05 15:02 | Emergency (ER) | payer MEDICARE ==
--- NOTE | 2020-04-05 15:41 | EDM.PDOC ---
ED HPI GENERAL MEDICAL PROBLEM - General Chief Complaint: Back Pain or Injury Stated Complaint: LOWER BACK PAIN Time Seen by Provider: 04/05/20 15:45 Source of Information: Reports: Patient History Limitations: Reports: No Limitations Lower Back Pain Score (Numeric/FACES): 10 - Related Data Allergies Allergy/AdvReac Type Severity Reaction Status Date / Time No Known Allergies Allergy Verified 04/05/20 15:26 Home Meds: Home Meds NK [No Known Home Meds] 04/05/20 [History] Past Medical History Genitourinary History: Reports: Renal Calculus Musculoskeletal History: Reports: Fracture, Other (See Below) Other Musculoskeletal History: right rotator cuff tear Neurological History: Reports: Concussion Psychiatric History: Reports: ADD Endocrine/Metabolic History: Reports: Obesity/BMI 30+ Dermatologic History: Reports: Psoriasis - Infectious Disease History Infectious Disease History: Reports: Chicken Pox Other Infectious Disease History: unknown - Past Surgical History HEENT Surgical History: Reports: Other (See Below) Other HEENT Surgeries/Procedures: LOWER JAW SURGICAL REPAIR Musculoskeletal Surgical History: Reports: Arthroscopic Knee, Hip Replacement Social & Family History - Family History Family Medical History: Noncontributory - Tobacco Use Smoking Status *Q: Current Every Day Smoker Years of Tobacco use: 20 Packs/Tins Daily: 0.2 Used Tobacco, but Quit: No Second Hand Smoke Exposure: No - Caffeine Use Caffeine Use: Reports: Coffee, Energy Drinks, Soda, Tea - Recreational Drug Use Recreational Drug Use: Yes Drug Use in Last 12 Months: Yes Recreational Drug Type: Reports: Marijuana/Hashish Recreational Drug Use Frequency: Rarely - Living Situation & Occupation Living situation: Reports: , Single Occupation: Employed ED ROS GENERAL - Review of Systems Review Of Systems: See Below Constitutional: Denies: Fever, Chills, Fatigue, Diaphoresis HEENT: Reports: No Symptoms Respiratory: Denies: Shortness of Breath Cardiovascular: Denies: Chest Pain Endocrine: Denies: Polyuria GI/Abdominal: Denies: Abdominal Pain, Anorexia : Reports: Other (states his urine has been cloudy). Denies: Dysuria, Hematuria Musculoskeletal: Reports: Back Pain, Muscle Stiffness Skin: Denies: Mottled, Rash Neurological: Denies: Confusion, Numbness, Paresthesia, Pre-Existing Deficit, Syncope ED EXAM,LOWER BACK PAIN/INJURY - Physical Exam Exam: See Below Exam Limited By: No Limitations General Appearance: Anxious, Moderate Distress GI/Abdominal: Soft, Non-Tender, No Abnormal Bruit, Other (Diabetes) Back Exam: Normal Inspection, CVA Tenderness (R), CVA Tenderness (L), Decreased Range of Motion, Muscle Spasm. No: Vertebral Tenderness Extremities: Normal Inspection, Normal Range of Motion, Non-Tender, Other (Able to do straight leg raising bilaterally. Straight leg raising on the right does exacerbate low back pain). No: Pedal Edema, Limited Range of Motion Neurological: Normal Reflexes, No Motor/Sensory Deficits, Straight Leg Raise (L) , Straight Leg Raise (R), Other (Full to dorsiflex and plantarflex both feet forcibly) DTR - Lower Extremities: 1+: Knee (R), Knee (L) Psychiatric: Normal Affect, Normal Mood Skin Exam: Warm, Dry Course - Vital Signs Last Recorded V/S: Last Vital Signs Temp 36.7 C 04/05/20 15:27 Pulse 72 04/05/20 15:52 Resp 16 04/05/20 15:27 BP 141/94 H 04/05/20 15:52 Pulse Ox 98 04/05/20 15:27 - Orders/Labs/Meds Labs: Laboratory Tests 04/05/20 Range/Units 15:25 Urine Color Yellow (YELLOW) Urine Appearance Slightly cloudy A (CLEAR) Urine pH 6.5 (5.0-8.0) Ur Specific [place] >= 1.030 (1.008-1.030) Urine Protein Negative (NEGATIVE) mg/dL Urine Glucose (UA) Negative (NEGATIVE) mg/dL Urine Ketones Negative (NEGATIVE) mg/dL Urine Occult Blood Negative (NEGATIVE) Urine Nitrite Negative (NEGATIVE) Urine Bilirubin Negative (NEGATIVE) Urine Urobilinogen 1.0 (0.2-1.0) EU/dL Ur Leukocyte Esterase Negative (NEGATIVE) Urine RBC Not seen (0-5) Urine WBC Not seen (0-5) Amorphous Sediment Moderate Urine Bacteria Not seen Urine Mucus Few Meds: Medications Discontinued Medications Generic Name Dose Route Start Last Admin Trade Name Freq PRN Reason Stop Dose Admin Cyclobenzaprine HCl 10 mg 04/05/20 15:46 04/05/20 15:52 Flexeril PO 04/05/20 15:47 10 mg ONETIME ONE Administration Ketorolac Tromethamine 10 mg 04/05/20 15:46 04/05/20 15:52 Toradol PO 04/05/20 15:47 10 mg ONETIME ONE Administration Departure - Departure Time of Disposition: 17:15 Disposition: Home, Self-Care 01 Condition: Good Clinical Impression: Back muscle spasm - Discharge Information Instructions: Muscle Strain, [id number], Back Injury Prevention Referrals: PCP,None [Primary Care Provider] - Forms: ED Department Discharge Additional Instructions: Prescriptions provided for Tramadol for pain and cyclobenzaprine for muscle relaxation. Consider seeing a physical therapist next week regarding back exercises Sepsis Event Note - Evaluation Sepsis Screening Result: No Definite Risk - Focused Exam Vital Signs: Vital Signs Temp Pulse Resp BP Pulse Ox 04/05/20 15:52 72 141/94 H 04/05/20 15:27 36.7 C 78 16 141/106 H 98 04/05/20 15:22 36.7 C 78 16 141/106 H 98 Date Exam was Performed: 04/05/20 Time Exam was Performed: 17:19
[2020-04-05] MEDS ORDERED: Cyclobenzaprine 10 MG Tab PO ONE (15:46)
[2020-04-05] MEDS ORDERED: Ketorolac 10 MG Tab PO ONE (15:46)
== END 2020-04-05 17:25 | disposition home or self-care (01) ==
LOC: JP.ED 15:02
DX: M62.830 Muscle spasm of back (principal); F17.210 Nicotine dependence, cigarettes, uncomplicated; E66.9 Obesity, unspecified; Z68.36 Body mass index [BMI] 36.0-36.9, adult
CPT/HCPCS: 81001; 99283; A9270

== ENCOUNTER 2020-04-16 20:24 | Emergency (ER) | payer MEDICARE ==
--- NOTE | 2020-04-16 21:09 | EDM.PDOC ---
ED HPI GENERAL MEDICAL PROBLEM - General Chief Complaint: Skin Complaint Stated Complaint: POISON LILY BURN Time Seen by Provider: 04/16/20 20:30 Source of Information: Reports: Patient, RN Notes Reviewed History Limitations: Reports: No Limitations - History of Present Illness INITIAL COMMENTS - FREE TEXT/NARRATIVE: 39-year-old gentleman presents emergency department today with complaint of poison lily, he has had this before this particular event started on his right hand but now has spread he has it to his inner thighs into his groin as well as on his abdomen. He states it is quite itchy no difficulty breathing no fevers - Related Data Allergies Allergy/AdvReac Type Severity Reaction Status Date / Time No Known Allergies Allergy Verified 04/16/20 20:54 Home Meds: Home Meds predniSONE [Prednisone] 60 mg PO DAILY #14 tablet 04/16/20 [Rx] Past Medical History HEENT History: Reports: Impaired Vision Respiratory History: Reports: Sleep Apnea Genitourinary History: Reports: Renal Calculus Musculoskeletal History: Reports: Fracture, Other (See Below) Other Musculoskeletal History: right rotator cuff tear Neurological History: Reports: Concussion Psychiatric History: Reports: ADD Endocrine/Metabolic History: Reports: Obesity/BMI 30+ Dermatologic History: Reports: Psoriasis - Infectious Disease History Infectious Disease History: Reports: Chicken Pox Other Infectious Disease History: unknown - Past Surgical History Head Surgeries/Procedures: Reports: None HEENT Surgical History: Reports: Tonsillectomy, Other (See Below) Other HEENT Surgeries/Procedures: LOWER JAW SURGICAL REPAIR Respiratory Surgical History: Reports: None Musculoskeletal Surgical History: Reports: Arthroscopic Knee, Hip Replacement Social & Family History - Family History Family Medical History: Noncontributory - Tobacco Use Smoking Status *Q: Current Some Day Smoker Years of Tobacco use: 20 Packs/Tins Daily: 0.1 - Caffeine Use Caffeine Use: Reports: Coffee, Energy Drinks, Soda, Tea - Living Situation & Occupation Living situation: Reports: , Single Occupation: Employed ED ROS GENERAL - Review of Systems Review Of Systems: See Below Constitutional: Reports: No Symptoms Skin: Reports: Dryness, Pruritis, Rash, Erythema ED EXAM, SKIN/RASH Exam: See Below Text/Narrative:: Examination of the integument system in between digits 4 and 5 he does have a thick significant excoriation cycle with it scratch the skin is broken down with multiple eschars forming however in the groin area I do appreciate linear streaking with small vesicles consistent with poison lily exposure Exam Limited By: No Limitations General Appearance: Alert, WD/WN, No Apparent Distress Course - Vital Signs Last Recorded V/S: Last Vital Signs Temp 98.8 F 04/16/20 20:55 Pulse 116 H 04/16/20 20:55 Resp 16 04/16/20 20:55 BP 133/103 H 04/16/20 20:55 Pulse Ox 94 L 04/16/20 20:55 Departure - Departure Time of Disposition: 21:09 Disposition: Home, Self-Care 01 Condition: Fair Clinical Impression: Contact dermatitis Qualifiers: Contact dermatitis type: allergic Contact dermatitis trigger: non-food plants Qualified Code(s): L23.7 - Allergic contact dermatitis due to plants, except food - Discharge Information Instructions: Poison Lily Dermatitis Referrals: PCP,None [Primary Care Provider] - Additional Instructions: Take full course of prednisone, continue to use Benadryl as needed for symptomatic relief, please followup with your primary care provider in 3-5 days if not better, please call return to the emergency department with worsening of symptoms. Sepsis Event Note - Evaluation Sepsis Screening Result: No Definite Risk - Focused Exam Vital Signs: Vital Signs Temp Pulse Resp BP Pulse Ox 04/16/20 20:55 98.8 F 116 H 16 133/103 H 94 L 04/16/20 20:40 98.8 F 116 H 16 133/103 H 94 L Date Exam was Performed: 04/16/20 Time Exam was Performed: 21:04 - Assessment/Plan Plan: Assessment Acuity = acute Site and laterality = contact dermatitis Etiology = poison lily Manifestations = pruritus Location of injury = Home Lab values = none Plan [facility] prednisone 60 mg once a day for 2 weeks follow-up primary care in 7 to 10 days if no improvement This note was dictated using [employer] voice recognition software please call with any questions on syntax or grammar.
== END 2020-04-16 21:45 | disposition home or self-care (01) ==
LOC: JP.ED 20:24
DX: L23.7 Allergic contact dermatitis due to plants, except food (principal); F17.210 Nicotine dependence, cigarettes, uncomplicated; E66.9 Obesity, unspecified; Z68.36 Body mass index [BMI] 36.0-36.9, adult
CPT/HCPCS: 99283

== ENCOUNTER 2020-05-05 07:02 | Day surgery (SDC) | payer MEDICARE ==
[~2020-05-05 07:02] MED LIST: Bupivacaine 0.5% 30 ML SDV ONE
[2020-05-05] MEDS ORDERED: Midazolam 1 MG/ML 2 ML SDV ONE ×2 (07:26→10:41)
[2020-05-05] MEDS ORDERED: fentaNYL 100 MCG/2 ML SDV ONE (07:26)
[2020-05-05] MEDS ORDERED: Propofol 200 MG/20 ML SDV ONE ×4 (07:26→11:00)
[2020-05-05] MEDS ORDERED: Bupivacaine 0.5% 30 ML SDV ONE ×2 (07:27→07:29)
[2020-05-05] MEDS ORDERED: Nozin Nasal Sanitizer NASBOTH ONE (07:45)
[2020-05-05] MEDS ORDERED: Lactated Ringers 1,000 ML IV SCH (07:45)
[2020-05-05] MEDS ORDERED: ceFAZolin 2 GM in Premix Bag 1 BAG IV ONE (07:45)
[2020-05-05] MEDS ORDERED: Labetalol 20 MG/4 ML Syringe ONE (10:32)
[2020-05-05] MEDS ORDERED: Lactated Ringers 1,000 ML ONE (11:12)
--- NOTE | 2020-05-16 17:54 | OR ---
DATE OF PROCEDURE: 05/05/2020 SURGEON: Edvin Vallejo MD PREOPERATIVE DIAGNOSES: 1. Impingement, right shoulder with rotator cuff tendinopathy, possible tear. 2. Acromioclavicular joint arthrosis. POSTOPERATIVE DIAGNOSES: 1. Impingement, right shoulder, partial-thickness tear in the supraspinous approximately 30%. 2. Degenerative labral tear including anterior, superior, and posterior labrum. 3. Extensive synovitis, right shoulder. 4. Extensive subacromial bursitis, right shoulder. 5. Acromioclavicular arthrosis. PROCEDURE: Arthroscopy of right shoulder with debridement of anterior, superior, and posterior labrum, debridement of rotator cuff tear, limited synovectomy, subacromial decompression with acromioplasty and distal clavicle resection. ANESTHESIA: Interscalene block with sedation. INDICATION: Balbir is a 39-year-old male with a history of progressive pain in the right shoulder for more than a year. He has had previous conservative treatment with limited success. Evaluation and imaging are consistent with impingement, AC arthrosis, and rotator cuff tendinopathy with possible small tear. He now presents to the operating room for arthroscopy with debridement and evaluation of the rotator cuff with repair as necessary, subacromial decompression with acromioplasty and distal clavicle resection. Risks, benefits, potential complications of the procedure were discussed. DESCRIPTION OF PROCEDURE: After adequate anesthesia was obtained, patient was placed in lateral decubitus position and secured with a dahl bag positioner. Right shoulder and arm were then prepped and draped in sterile fashion and 10 pounds of traction was placed through the shoulder traction unit. Standard posterior portal was established. Glenohumeral joint revealed several very small articular cartilage fragments free within the joint and early grade 2 changes of the glenoid surface and humeral head. Degenerative fraying of the labrum was present superior to the equator both anteriorly and posteriorly, as well as along the biceps anchor. Inferior labrum was intact. Extensive synovitis was present throughout the joint. Anterior portal was established, and using combination of shaver and the ablation wand, synovectomy was performed for further evaluation of the cuff and labrum. Subscapularis was intact. Biceps tendon was intact. Biceps anchor was secure. However, significant degenerative changes noted of the labrum and this was debrided back to a stable margin. The undersurface of the rotator cuff showed a small area of tendinopathy and approximately 30% partial-thickness tear. Scope was then withdrawn and placed into the subacromial space. Significant erythema was present in the subacromial bursa as well. Working through lateral portal, bursa was cleared using combination of the shaver and the ablation wand, and the rotator cuff was evaluated. The arm was taken through internal and external rotation, abduction, and there was no evidence of full-thickness or significant partial-thickness tear. The area of the partial-thickness tear noted on the articular side was probed and was not found to be significantly weak. The undersurface of the acromion was cleared of soft tissue including release of the coracoacromial ligament. Acromioplasty was then performed with a anna, bevelling the acromion medially and posteriorly and removing approximately 4 mm. Distal clavicle was then evident with significant inferior spur. The capsule was cleared from the distal clavicle using the ablation wand and a anna was then used to resect the inferior aspect of the clavicle. The anna was then switched to the anterior portal and working from inferior to superior, the clavicle was resected. Approximately 8 mm of the distal clavicle was resected. All loose fragments were removed. Cuff was inspected once again, no other abnormalities were identified. The scope was then withdrawn. Port sites were closed in a standard fashion. Sterile dressing was applied. The patient tolerated procedure very well, there were no complications, taken from the operating room in stable condition. Edvin Vallejo MD /[id number]
== END 2020-05-05 13:49 | disposition home or self-care (01) ==
LOC: JP.SDS 07:02
PROVIDERS: ATTEND Specialist
DX: M25.811 Other specified joint disorders, right shoulder (principal); M75.111 Incomplete rotator cuff tear or rupture of right shoulder, not specified as traumatic; S43.491A Other sprain of right shoulder joint, initial encounter; M65.811 Other synovitis and tenosynovitis, right shoulder; M75.51 Bursitis of right shoulder; M19.011 Primary osteoarthritis, right shoulder; E66.9 Obesity, unspecified; F17.200 Nicotine dependence, unspecified, uncomplicated; Z68.36 Body mass index [BMI] 36.0-36.9, adult; X58.XXXA Exposure to other specified factors, initial encounter
CPT/HCPCS: 29823; 29824; 29826; 36415; 80053; 85027; A9270; C1713; J0690; J2250; J2704; J3010; J3490; J7120

== ENCOUNTER 2020-05-25 00:22 | Emergency (ER) | payer MEDICARE, OTHER ==
--- NOTE | 2020-05-25 00:28 | EDM.PDOC ---
ED HPI GENERAL MEDICAL PROBLEM - General Stated Complaint: ACCIDENT VIA [facility] Time Seen by Provider: 05/25/20 00:22 Source of Information: Reports: Patient, EMS History Limitations: Reports: No Limitations - History of Present Illness INITIAL COMMENTS - FREE TEXT/NARRATIVE: 39-year-old male slipped on some wet floor at [employer] where he works and hit his right shoulder and back of his head on a side cooler. They had to call the ambulance because he "hurts all over", no loss of consciousness. He received 2 mg of Dilaudid in route. Onset: Sudden Duration: Other (1/2-hour ago.) Associated Symptoms: Denies: Confusion, Headaches, Shortness of Breath Right Shoulder Pain Score (Numeric/FACES): 7 - Related Data Allergies Allergy/AdvReac Type Severity Reaction Status Date / Time mold Allergy Severe Anaphylactic Verified 05/25/20 00:38 Shock Home Meds: Home Meds Ibuprofen 600 mg PO Q6H PRN 05/25/20 [History] Past Medical History HEENT History: Reports: Impaired Vision Cardiovascular History: Reports: None Respiratory History: Reports: Sleep Apnea Gastrointestinal History: Reports: None Genitourinary History: Reports: Renal Calculus Musculoskeletal History: Reports: Fracture, Other (See Below) Other Musculoskeletal History: s/p RRCR 05/05/20 Neurological History: Reports: Concussion, Migraines Psychiatric History: Reports: ADD Endocrine/Metabolic History: Reports: Obesity/BMI 30+ Hematologic History: Reports: None Immunologic History: Reports: None Oncologic (Cancer) History: Reports: None Dermatologic History: Reports: Psoriasis - Infectious Disease History Infectious Disease History: Reports: Chicken Pox Other Infectious Disease History: unknown - Past Surgical History Head Surgeries/Procedures: Reports: None HEENT Surgical History: Reports: Tonsillectomy, Other (See Below) Other HEENT Surgeries/Procedures: LOWER JAW SURGICAL REPAIR Respiratory Surgical History: Reports: None Other Musculoskeletal Surgeries/Procedures:: right Total hip. screws in jaw. ACL repair Social & Family History - Family History Family Medical History: Noncontributory - Caffeine Use Caffeine Use: Reports: None - Living Situation & Occupation Living situation: Reports: , Single Occupation: Employed ED ROS GENERAL - Review of Systems Review Of Systems: See Below Constitutional: Denies: Fever, Chills Respiratory: Denies: Shortness of Breath Cardiovascular: Denies: Chest Pain GI/Abdominal: Denies: Abdominal Pain, Nausea, Vomiting Musculoskeletal: Reports: Neck Pain, Shoulder Pain, Back Pain, Other (Right knee pain) Skin: Denies: Bruising Neurological: Denies: Headache ED EXAM, GENERAL - Physical Exam Exam: See Below Exam Limited By: No Limitations General Appearance: Alert, Anxious Eye Exam: Bilateral Eye: EOMI Throat/Mouth: Other (Significant widespread dental decay) Head: Other (Difficult to examine because everything touched hurts, no objective evidence of injury such as hematoma or abrasion) Neck: Other (Paracervical muscles are tender to palpation) Respiratory/Chest: No Respiratory Distress Extremities: Limited Range of Motion (Right shoulder is tender to palpation, passive range of motion is sore. Right knee is tender to palpation but there is no swelling deformity or focal bony tenderness) Psychiatric: Other (Patient is hyperdramatic) Skin Exam: Warm, Dry Course - Vital Signs Last Recorded V/S: Last Vital Signs Temp 98.6 F 05/25/20 00:38 Pulse 90 05/25/20 00:38 Resp 18 05/25/20 00:38 BP 148/99 H 05/25/20 00:38 Pulse Ox 96 05/25/20 00:38 - Orders/Labs/Meds Orders: Active Orders 24 hr Category Date Time Status Shoulder Comp Rt [CR] Stat Exams 05/25/20 00:24 Taken - Re-Assessments/Exams Free Text/Narrative Re-Assessment/Exam: 05/25/20 00:[address] of the cervical spine will be obtained for completeness as well as a right shoulder x-ray but no further work-up is needed. 05/25/20 01:04 Shoulder x-ray is normal, cervical spine CT is normal. Patient was reassured that he will have a few aches and pains for a few days but should improve rapidly, he can recheck next week if not improving satisfactorily. Departure - Departure Time of Disposition: 01:28 Disposition: Home, Self-Care 01 Clinical Impression: Contusion of right shoulder Qualifiers: Encounter type: initial encounter Qualified Code(s): S40.011A - Contusion of right shoulder, initial encounter Neck strain Qualifiers: Encounter type: initial encounter Qualified Code(s): S16.1XXA - Strain of muscle, fascia and tendon at neck level, initial encounter Contusion of right knee Qualifiers: Encounter type: initial encounter Qualified Code(s): S80.01XA - Contusion of right knee, initial encounter - Discharge Information Instructions: Contusion, [id number] Referrals: PCP,None [Primary Care Provider] - Forms: ED Department Discharge Care Plan Goals: Continue any current medications, increase activity as tolerated and ice down sore areas for the next 2 days. Recheck in 2 to 3 days if not improving satisfactorily. Sepsis Event Note (ED) - Focused Exam Vital Signs: Vital Signs Temp Pulse Resp BP Pulse Ox 05/25/20 00:38 98.6 F 90 18 148/99 H 96 05/25/20 00:26 98.6 F 90 18 148/99 H 96 - My Orders Last 24 Hours: My Active Orders 05/25/20 00:24 Shoulder Comp Rt [CR] Stat - Assessment/Plan Last 24 Hours: My Active Orders 05/25/20 00:24 Shoulder Comp Rt [CR] Stat
--- NOTE | 2020-05-25 01:27 | CRLCT ---
INDICATION: Fall, cervical spine pain slipped on floor TECHNIQUE: CT cervical spine without i.v. contrast. Coronal and sagittal reformats were obtained. COMPARISON: None FINDINGS: Alignment: Unremarkable. Bone: No acute fractures or aggressive bone lesions are identified. Disc: The disc spaces are unremarkable in appearance. The facet joints are unremarkable. Soft tissue: The prevertebral soft tissues are unremarkable in appearance. The visualized lung apices and mediastinum are unremarkable. IMPRESSION: 1. No acute osseous injuries are identified. Please note that all CT scans at this facility use dose modulation, iterative reconstruction, and/or weight-based dosing when appropriate to reduce radiation dose to as low as reasonably achievable. Dictated by: Kahlil Vela MD @ 05/25/2020 01:27:03 (Electronically Signed)
--- NOTE | 2020-05-27 09:40 | CR ---
Shoulder Comp Rt CLINICAL HISTORY: Fall FINDINGS: There is no acute fracture or dislocation in the right shoulder. There is some irregularity in the glenohumeral periarticular region which appears to be osteoarthritic. This could be from old injury. Impression: Irregular articular margin in the glenoid and humerus. This could be from old injury No acute fracture
== END 2020-05-25 01:28 | disposition home or self-care (01) ==
LOC: JP.ED 00:22
DX: S16.1XXA Strain of muscle, fascia and tendon at neck level, initial encounter (principal); S40.011A Contusion of right shoulder, initial encounter; S80.01XA Contusion of right knee, initial encounter; Z91.09 Other allergy status, other than to drugs and biological substances; E66.9 Obesity, unspecified; Z68.34 Body mass index [BMI] 34.0-34.9, adult; W01.0XXA Fall on same level from slipping, tripping and stumbling without subsequent striking against object, initial encounter; Y99.0 Civilian activity done for income or pay
CPT/HCPCS: 72125; 73030-26-RT; 73030-RT; 99284-25

== ENCOUNTER 2021-10-03 14:09 | Emergency (ER) | payer MEDICARE, OTHER ==
--- NOTE | 2021-10-03 15:14 | EDM.PDOC ---
ED HPI GENERAL MEDICAL PROBLEM - General Chief Complaint: Respiratory Problem Stated Complaint: COUGH,SOB,EXPOSED TO COVID Time Seen by Provider: 10/03/21 15:00 Source of Information: Reports: Patient, Old Records History Limitations: Reports: No Limitations - History of Present Illness INITIAL COMMENTS - FREE TEXT/NARRATIVE: 41 yo male presents with cough and congestion for about a week. No fever. Wants to be tested for Covid. Has clear rhinorrhea. Onset: Gradual Onset Date: 09/27/21 Duration: Week(s): (1), Constant Location: Reports: Face, Chest Quality: Reports: Other (no pain) Severity: Moderate Improves with: Reports: None Worsens with: Reports: None Context: Reports: Other (See HPI) Associated Symptoms: Reports: Cough. 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: Reports: Other (see below) (none) - Related Data Allergies Allergy/AdvReac Type Severity Reaction Status Date / Time mold Allergy Severe Anaphylactic Verified 10/03/21 14:39 Shock Home Meds: Home Meds Ibuprofen 600 mg PO Q6H PRN 05/25/20 [History] Past Medical History HEENT History: Reports: Impaired Vision Cardiovascular History: Reports: None Respiratory History: Reports: Sleep Apnea Gastrointestinal History: Reports: None Genitourinary History: Reports: Renal Calculus Musculoskeletal History: Reports: Fracture, Other (See Below) Other Musculoskeletal History: s/p RRCR 05/05/20 Neurological History: Reports: Concussion, Migraines Psychiatric History: Reports: ADD Endocrine/Metabolic History: Reports: Obesity/BMI 30+ Hematologic History: Reports: None Immunologic History: Reports: None Oncologic (Cancer) History: Reports: None Dermatologic History: Reports: Psoriasis - Infectious Disease History Infectious Disease History: Reports: Chicken Pox Other Infectious Disease History: unknown - Past Surgical History Head Surgeries/Procedures: Reports: None HEENT Surgical History: Reports: Tonsillectomy, Other (See Below) Other HEENT Surgeries/Procedures: LOWER JAW SURGICAL REPAIR Neurological Surgical History: Reports: Other (See Below) Other Neurological Surgeries/Procedures: fatty tissue taken from lower back Musculoskeletal Surgical History: Reports: Arthroscopic Knee, Hip Replacement, Shoulder Surgery, Other (See Below) Other Musculoskeletal Surgeries/Procedures:: right Total hip. screws in jaw. ACL repair. s/p RRCR 05/05/20 Social & Family History - Family History Family Medical History: No Pertinent Family History - Tobacco Use Tobacco Use Status *Q: Heavy Tobacco User Years of Tobacco use: 25 Packs/Tins Daily: 1 - Caffeine Use Caffeine Use: Reports: Coffee, Energy Drinks, Soda, Tea - Recreational Drug Use Recreational Drug Use: No - Living Situation & Occupation Living situation: Reports: , Single Occupation: Employed ED ROS GENERAL - Review of Systems Review Of Systems: See Below Constitutional: Reports: Malaise HEENT: Reports: Rhinitis. Denies: Throat Pain Respiratory: Reports: Cough. Denies: Sputum Cardiovascular: Reports: No Symptoms Endocrine: Reports: No Symptoms GI/Abdominal: Reports: No Symptoms : Reports: No Symptoms Musculoskeletal: Reports: No Symptoms Skin: Reports: No Symptoms ED EXAM, GENERAL - Physical Exam Exam: See Below Exam Limited By: No Limitations General Appearance: Alert, WD/WN, No Apparent Distress, Obese Eye Exam: Bilateral Eye: Normal Inspection Ears: Normal External Exam, Normal Canal, Hearing Grossly Normal, Normal TMs Ear Exam: Bilateral Ear: Auricle Normal, Canal Normal, TM normal Nose: Clear Rhinorrhea, Other (congestion) Throat/Mouth: Normal Inspection, Normal Lips, Normal Oropharynx, Normal Voice, No Airway Compromise Head: Atraumatic, Normocephalic Neck: Normal Inspection Respiratory/Chest: No Respiratory Distress, Lungs Clear, Normal Breath Sounds, No Accessory Muscle Use Cardiovascular: Regular Rate, Rhythm, No Edema Extremities: Normal Inspection Neurological: Alert, Oriented, CN II-XII Intact, Normal Cognition, No Motor/Sensory Deficits Psychiatric: Normal Affect, Normal Mood Skin Exam: Warm, Dry, Intact, Normal Color, No Rash Course - Vital Signs Last Recorded V/S: Last Vital Signs Temp 36.6 C 10/03/21 14:38 Pulse 85 10/03/21 14:38 Resp 18 10/03/21 14:38 BP 142/93 H 10/03/21 14:38 Pulse Ox 97 10/03/21 14:38 - Orders/Labs/Meds Labs: Laboratory Tests 10/03/21 Range/Units 14:31 SARS CoV-2 RNA Rapid ALEENA Negative Departure - Departure Time of Disposition: 15:13 Disposition: Home, Self-Care 01 Condition: Good Clinical Impression: Viral URI - Discharge Information *PRESCRIPTION DRUG MONITORING PROGRAM REVIEWED*: Not Applicable *COPY OF PRESCRIPTION DRUG MONITORING REPORT IN PATIENT DEON: Not Applicable Instructions: Upper Respiratory Infection, Adult, [id number] Referrals: PCP,None [Primary Care Provider] - Additional Instructions: Drink ample fluids. Wash your hands and wear a mask to reduce the risk of spread. Use Cold Ease to reduce the duration of your symptoms. Recheck with your provider as needed. Sepsis Event Note (ED) - Evaluation Sepsis Screening Result: No Definite Risk - Focused Exam Vital Signs: Vital Signs Temp Pulse Resp BP Pulse Ox 10/03/21 14:38 36.6 C 85 18 142/93 H 97
== END 2021-10-03 15:50 | disposition home or self-care (01) ==
LOC: JP.ED 14:09
DX: J06.9 Acute upper respiratory infection, unspecified (principal); E66.9 Obesity, unspecified; Z68.39 Body mass index [BMI] 39.0-39.9, adult; Z91.048 Other nonmedicinal substance allergy status; Z72.0 Tobacco use; Z20.822 Contact with and (suspected) exposure to COVID-19
CPT/HCPCS: 99283; U0002

== ENCOUNTER 2022-06-10 22:37 | Emergency (ER) | payer MEDICARE, MEDICAID ==
[2022-06-10] MEDS ORDERED: Sodium Chloride 0.9% 10 ML Syringe FLUSH PRN (23:11)
[2022-06-10] MEDS ORDERED: cefTRIAXone 2 GM in Sodium Chloride 0.9% 50 ML IV ONE (23:11)
== END 2022-06-11 00:21 | disposition home or self-care (01) ==
LOC: JP.ED 22:37
DX: L03.213 Periorbital cellulitis (principal); F17.210 Nicotine dependence, cigarettes, uncomplicated; E66.9 Obesity, unspecified; Z68.36 Body mass index [BMI] 36.0-36.9, adult; Z91.048 Other nonmedicinal substance allergy status
CPT/HCPCS: 36415; 80048; 85025; 86140; 96365; 99283; J0696; J3490

== ENCOUNTER 2022-10-10 12:14 | Emergency (ER) | payer OTHER, MEDICARE, MEDICAID ==
[2022-10-10] MEDS ORDERED: Acetaminophen/HYDROcodone 325-5 MG Tab PO ONE (14:55)
== END 2022-10-10 15:42 | disposition home or self-care (01) ==
LOC: JP.ED 12:14
DX: S83.011A Lateral subluxation of right patella, initial encounter (principal); S80.01XA Contusion of right knee, initial encounter; E66.9 Obesity, unspecified; Z68.38 Body mass index [BMI] 38.0-38.9, adult; Z91.048 Other nonmedicinal substance allergy status; W01.0XXA Fall on same level from slipping, tripping and stumbling without subsequent striking against object, initial encounter
CPT/HCPCS: 73700; 99283; A9270

== ENCOUNTER 2023-01-16 18:37 | Emergency (ER) | payer MEDICARE, MEDICAID | END 2023-01-16 19:36 | disposition home or self-care (01) | LOC: JP.ED 18:37 | DX: L03.211 Cellulitis of face (principal); K04.7 Periapical abscess without sinus; E66.9 Obesity, unspecified; Z91.048 Other nonmedicinal substance allergy status; Z68.38 Body mass index [BMI] 38.0-38.9, adult; Z72.0 Tobacco use | CPT/HCPCS: 99283 ==

== ENCOUNTER 2025-03-30 20:32 | Emergency (ER) | payer MEDICAID, MEDICARE ==
[2025-03-30 21:34] LABS: BASOPHILS ABSOLUTE AUTO 0.04 K/uL (0.00-0.10); BASOPHILS PERCENT AUTO 0.5 % (0.1-1.3); EOSINOPHILS ABSOLUTE AUTO 0.21 K/uL (0.00-0.40); EOSINOPHILS PERCENT AUTO 2.5 % (0.0-5.4); HEMATOCRIT 46.4 % (38.4-49.7); HEMOGLOBIN 15.9 g/dL (12.9-16.9); IMMATURE GRAN ABSOLUTE AUTO 0.03 K/uL (0.00-0.23); IMMATURE GRAN PERCENT AUTO 0.4 % (0.0-0.7); LYMPHOCYTES ABSOLUTE AUTO 2.18 K/uL (0.8-3.3); LYMPHOCYTES PERCENT AUTO 25.9 % (11.4-47.7); MEAN CORPUSCULAR HEMOGLOBIN 30.6 pg (31.6-35.5); MEAN CORPUSCULAR HGB CONC 34.3 g/dL (31.6-35.5); MEAN CORPUSCULAR VOLUME 89.4 fL (81.4-99.0); MONOCYTES ABSOLUTE AUTO 0.54 K/uL (0.20-0.90); MONOCYTES PERCENT AUTO 6.4 % (3.3-12.6); NEUTROPHILS ABSOLUTE AUTO 5.42 K/uL (1.0-7.6); NEUTROPHILS PERCENT AUTO 64.3 % (40.0-78.1); PLATELET COUNT,PLT 219 K/uL (130-375); RED BLOOD CELL COUNT 5.19 M/uL (4.14-5.76); WHITE BLOOD CELL COUNT,WBC 8.4 K/uL (3.2-11.0)
[2025-03-30 21:57] LABS: ANION GAP 7.9 mmol/L (5.0-14.0); CALCIUM 9.1 mg/dL (8.5-10.1); CREATININE 1.4 mg/dL (0.8-1.3); EST CRCL DRUG DOSING (CG) 66.63 mL/min; POTASSIUM,K 3.9 mmol/L (3.6-5.2)
[2025-03-30 22:03] LABS: TROPONIN I HIGH SENSITIVITY 65.7 pg/mL (<=60.3)
== END 2025-03-31 00:24 | disposition home or self-care (01) ==
LOC: JP.ED 20:32
DX: R42 Dizziness and giddiness (principal); E66.9 Obesity, unspecified; Z68.41 Body mass index [BMI] 40.0-44.9, adult; Z91.048 Other nonmedicinal substance allergy status
CPT/HCPCS: 36415; 80048; 83605; 84484; 85025; 93005; 93010; 99283; 99285

== ENCOUNTER 2025-03-31 19:18 | Emergency (ER) | payer MEDICARE ==
[2025-03-31] MEDS ORDERED: Sodium Chloride 0.9% 10 ML Syringe FLUSH PRN (19:27)
[2025-03-31] MEDS ORDERED: Morphine 4 MG/ML Syringe IVPUSH PRN (19:27)
[2025-03-31 19:35] LABS: BASOPHILS ABSOLUTE AUTO 0.05 K/uL (0.00-0.10); BASOPHILS PERCENT AUTO 0.6 % (0.1-1.3); EOSINOPHILS ABSOLUTE AUTO 0.22 K/uL (0.00-0.40); EOSINOPHILS PERCENT AUTO 2.4 % (0.0-5.4); HEMATOCRIT 48.5 % (38.4-49.7); HEMOGLOBIN 16.4 g/dL (12.9-16.9); IMMATURE GRAN ABSOLUTE AUTO 0.03 K/uL (0.00-0.23); IMMATURE GRAN PERCENT AUTO 0.3 % (0.0-0.7); LYMPHOCYTES ABSOLUTE AUTO 2.63 K/uL (0.8-3.3); LYMPHOCYTES PERCENT AUTO 29.1 % (11.4-47.7); MEAN CORPUSCULAR HEMOGLOBIN 30.2 pg (31.6-35.5); MEAN CORPUSCULAR HGB CONC 33.8 g/dL (31.6-35.5); MEAN CORPUSCULAR VOLUME 89.3 fL (81.4-99.0); MONOCYTES ABSOLUTE AUTO 0.85 K/uL (0.20-0.90); MONOCYTES PERCENT AUTO 9.4 % (3.3-12.6); NEUTROPHILS ABSOLUTE AUTO 5.27 K/uL (1.0-7.6); NEUTROPHILS PERCENT AUTO 58.2 % (40.0-78.1); PLATELET COUNT,PLT 237 K/uL (130-375); RED BLOOD CELL COUNT 5.43 M/uL (4.14-5.76); WHITE BLOOD CELL COUNT,WBC 9.1 K/uL (3.2-11.0)
[2025-03-31 19:53] LABS: ALANINE AMINOTRANSFERASE,ALT 59 U/L (12-78); ALBUMIN 3.7 g/dL (3.4-5.0); ALKALINE PHOSPHATASE 92 U/L (46-116); ANION GAP 9.4 mmol/L (5.0-14.0); ASPARTATE AMNIOTRANSFERASE,AST 24 U/L (15-37); BILIRUBIN TOTAL 0.6 mg/dL (0.2-1.0); BLOOD UREA NITROGEN,BUN 15 mg/dL (7-18); CALCIUM 9.9 mg/dL (8.5-10.1); CARBON DIOXIDE,CO2 28 mmol/L (21-32); CHLORIDE,CL 104 mmol/L (100-108); CREATININE 1.2 mg/dL (0.8-1.3); ESTIMATED GFR 76 mL/min (>60); GLUCOSE RANDOM 86 mg/dL (74-106); POTASSIUM,K 3.6 mmol/L (3.6-5.2); PROTEIN TOTAL,TP 7.4 g/dL (6.4-8.2); SODIUM,NA 141 mmol/L (140-148)
[2025-03-31] MEDS: Nitroglycerin 0.4 MG Tab.SL SL PRN (20:12)
[2025-03-31] MEDS: Aspirin 81 MG Tab.Chew PO ONE (20:13)
[2025-03-31] MEDS: Sodium Chloride 0.9% 10 ML Syringe FLUSH ONE (21:25)
[2025-03-31] MEDS: Iopamidol 755 Mg/ML 100 ML Bottle IV ONE (21:25)
[2025-03-31] MEDS: Sodium Chloride 0.9% 100 ML IV ONE (21:25)
[2025-03-31] MEDS: Sodium Chloride 0.9% 1,000 ML IV SCH (22:45)
[2025-03-31] MEDS: Ketorolac 30 MG/ML SDV IVPUSH ONE (22:45)
== END 2025-03-31 23:58 | disposition home or self-care (01) ==
LOC: JP.ED 19:18
DX: R07.9 Chest pain, unspecified (principal); Z91.048 Other nonmedicinal substance allergy status
CPT/HCPCS: 36415; 71275; 80053; 84484; 85025; 85379; 93005; 93010; 96374; 99283; 99285; A9270; J1885; J7030; Q9967